=== PATIENT | female | born 2000 | race Caucasian/White ===

== ENCOUNTER 2019-05-19 13:49 | Emergency (ER) | payer OTHER ==
[~2019-05-19] VITALS: Ht 160 cm; Wt 66.2 kg
[2019-05-19 13:53] VITALS: BP 120/83
--- NOTE | 2019-05-19 14:24 | NUR ---
PT AMBULATED TO ER BED 12
--- NOTE | 2019-05-19 14:30 | NUR ---
18YO F C/O LOW BACK PAIN X 2 DAYS. STATES 7/10 DULL, CONSTANT PAIN. PT ALSO WITH DYSURIA X 2 DAYS. NO MEDS TAKEN. DENIES ANY TRAUMA OR INJURY. DENIES HEMATURIA AND ANY PROBLEMS WITH BOWEL MOVT. VSS. PT POSITIONED IN BED COMFORTABLY. ERMD MADE AWARE OF PT STATUS. LMP: 2 WEEKS AGO PMH: NONE MEDS: CONTROL PILLS NKA
[2019-05-19] MEDS ORDERED: cefTRIAXone 1,000 MG in LIDOCAINE MPF 1% 2.1 ML IM ONE (14:35)
[2019-05-19] MEDS ORDERED: cefTRIAXone 1,000 MG VIAL ONE (14:42)
[2019-05-19] MEDS ORDERED: LIDOCAINE MPF 1% 5 ML ONE (14:44)
[2019-05-19 15:01] VITALS: BP 120/83
--- NOTE | 2019-05-19 15:02 | NUR ---
Patient discharged with v/s stable. Written and verbal after care instructions given and explained. Patient alert, oriented and verbalized understanding of instructions. Ambulatory with steady gait. All questions addressed prior to discharge. ID band removed. Patient advised to follow up with PMD. Rx of PYRIDIUM, KEFLEX given. Patient educated on indication of medication including possible reaction and side effects. Opportunity to ask questions provided and answered.
== END 2019-05-19 15:02 | disposition home or self-care (01) ==
LOC: MED 13:49
DX: N12 Tubulo-interstitial nephritis, not specified as acute or chronic (principal)
CPT/HCPCS: 81025; 96372; 99283; J0696; J2001